=== PATIENT | male | born 1980 | race Caucasian/White ===

== ENCOUNTER 2018-07-08 17:33 | Emergency (ER) | payer OTHER ==
[~2018-07-08] VITALS: Ht 182.9 cm; Wt 106.9 kg
--- NOTE | 2018-07-08 18:14 | PHYS DOC ---
Past History Past Medical History: Anxiety, Depression (JOHNATHON MARCANO DO) Past Surgical History: No Surgical History (JOHNATHON MARACNO DO) Alcohol Use: Occasionally Drug Use: None Social History Narrative: hx of THC use (JOHNATHON MARCANO DO) Adult General Chief Complaint Chief Complaint: BACK PAIN OR INJURY HPI HPI Patient is a 37-year-old male presents complaining of back pain for the past 5 days. He was seen at [facility] 2 days ago and was doing initially better on the oral outpatient medicines administered. However today he re-"tweaked" his back while sitting in a chair. There is been no new trauma. No loss of bowel or bladder control. No fever. No personal history of cancer. Movement seems to make it worse. Medications are providing little relief.[] (JOHNATHON MARCANO DO) Review of Systems Review of Systems Constitutional: Denies fever or chills [] Eyes: Denies change in visual acuity, redness, or eye pain [] HENT: Denies nasal congestion or sore throat [] Respiratory: Denies cough or shortness of breath [] Cardiovascular: No chest pain or palpitations[] GI: Denies abdominal pain, nausea, vomiting, bloody stools or diarrhea [] : Denies dysuria or hematuria [] Musculoskeletal: The history of present illness[] Integument: Denies rash or skin lesions [] Neurologic: Denies headache, focal weakness or sensory changes [] Endocrine: Denies polyuria or polydipsia [] All other systems were reviewed and found to be within normal limits, except as documented in this note. (JOHNATHON MARCANO DO) Allergies Allergies Allergies Coded Allergies Type Severity Reaction Last Updated Verified No Known Drug Allergies 07/08/18 No (JOHNATHON MARCANO DO) Physical Exam Physical Exam Constitutional: Well developed, well nourished, mild discomfort, non-toxic appearance. [] HENT: Normocephalic, atraumatic, bilateral external ears normal, oropharynx moist, no oral exudates, nose normal. [] Eyes: PERRLA, EOMI, conjunctiva normal, no discharge. [] Neck: Normal range of motion, no tenderness, supple, no stridor. [] Cardiovascular:Heart rate regular rhythm, no murmur [] Lungs & Thorax: Bilateral breath sounds clear to auscultation [] Abdomen: Bowel sounds normal, soft, no tenderness, no masses, no pulsatile masses. [] Skin: Warm, dry, no erythema, no rash. [] Back: Tenderness in the lower back. Decreased active range of motion. Bilateral lumbar paraspinal muscular tenderness. Normal gait. DTRs are 2 over 4 and symmetric. Strength is 5 out of 5 in the quadriceps, hamstrings, dorsi and plantar flexors of the ankle., no CVA tenderness. [] Extremities: No tenderness, no cyanosis, no clubbing, ROM intact, no edema. [] Neurologic: Alert and oriented X 3, normal motor function, normal sensory function, no focal deficits noted. [] Psychologic: Affect normal, judgement normal, mood normal. [] (JOHNATHON MARCANO DO) Physical Exam Constitutional: Well developed, well nourished, uncomfortable HENT: Normocephalic, atraumatic Neck: Normal range of motion, no tenderness, supple, no stridor. [] Skin: Warm, dry, no erythema Back: No midline bony tenderness, upper lumbar paraspinal tenderness noted bilaterally, pain on straight leg raise, no CVA tenderness Extremities: No tenderness, ROM intact, no edema. [] Neurologic: Alert and oriented X 3, no focal deficits noted. [] Psychologic: Affect normal, judgement normal, mood normal. [] (THAD KINCAID DO) Current Patient Data Vital Signs Vital Signs Date Time Temp Pulse Resp B/P (MAP) Pulse Ox O2 Delivery O2 Flow Rate FiO2 07/08/18 17:44 98.2 85 18 96 Room Air (JOHNATHON MARCANO DO) EKG EKG [] (JOHNATHON MARCANO DO) Radiology/Procedures Radiology/Procedures [] (JOHNATHON MARCANO DO) Course & Med Decision Making Course & Med Decision Making Pertinent Labs and Imaging studies reviewed. (See chart for details) ED course: Patient arrived, was placed in bed, and tolerated exam well. Patient care worst to the oncoming physician at 1800.[] (JOHNATHON MARCANO DO) Course & Med Decision Making 1800- Receiving signout from Dr. Marcano for patient with back pain and hx of known low back pain. Pain previously addressed. Patient seen and evaluated by myself. Denies loss of bowel/bladder. No rash noted. Patient stable for discharge with outpatient follow-up with PCP. Discussed findings and plan with patient, who acknowledges understanding and agreement. (THAD KINCAID DO) Dragon Disclaimer Dragon Disclaimer This electronic medical record was generated, in whole or in part, using a voice recognition dictation system. (JOHNATHON MARCANO DO) Departure Departure: Impression: Primary Impression: Back pain Disposition: HOME, SELF-CARE Condition: STABLE Referrals: PCP,UNKNOWN (PCP) Patient Instructions: Back Pain, Adult, [id number] Scripts Orphenadrine Citrate (ORPHENADRINE CITRATE) 100 Mg Tablet.er 1 TAB PO BID PRN for MUSCLE PAIN, #14 TAB 0 Refills Prov: THAD KINCAID DO 07/08/18 Prednisone (PREDNISONE) 20 Mg Tablet 1 TAB PO BID for back pain, #10 TAB Prov: THAD KINCAID DO 07/08/18 Problem Qualifiers Primary Impression: Back pain Back pain location: low back pain Chronicity: acute Back pain laterality: bilateral Sciatica presence: without sciatica Qualified Codes: M54.5 - Low back pain JOHNATHON MARCANO DO Jul 08, 2018 18:14 THAD KINCAID DO Jul 08, 2018 18:20
[2018-07-08] MEDS ORDERED: KETOROLAC 30 MG/ML VIAL. IM ONE (18:15)
[2018-07-08] MEDS ORDERED: ORPH-16 PO (18:20)
[2018-07-08] MEDS ORDERED: PRED20TA PO (18:20)
[2018-07-08 18:26] VITALS: BP 154/97
== END 2018-07-08 18:27 | disposition home or self-care (01) ==
LOC: ER 17:33
DX: M54.5 Low back pain (principal); F41.9 Anxiety disorder, unspecified; F32.9 Major depressive disorder, single episode, unspecified; X50.9XXA Other and unspecified overexertion or strenuous movements or postures, initial encounter; Y93.89 Activity, other specified; Y92.89 Other specified places as the place of occurrence of the external cause; Y99.8 Other external cause status
CPT/HCPCS: 96372; 99283; J1885; J2060

== ENCOUNTER 2019-04-03 11:56 | Emergency (ER) | payer OTHER ==
[~2019-04-03] VITALS: Ht 182.9 cm; Wt 106.9 kg
[~2019-04-03 11:56] MED LIST: ORPH-16 PO; PRED20TA PO
[2019-04-03 12:08] VITALS: BP 147/96
[2019-04-03] MEDS ORDERED: ORPH-16 PO (12:22)
[2019-04-03] MEDS ORDERED: DICL50TA4 PO (12:22)
[2019-04-03] MEDS ORDERED: HYDR-3165 PO (12:22)
--- NOTE | 2019-04-03 12:22 | PHYS DOC ---
Past History Past Medical History: Anxiety, Hypertension Past Surgical History: No Surgical History Alcohol Use: Rarely Drug Use: None Adult General Chief Complaint Chief Complaint: BACK PAIN OR INJURY HPI HPI Patient is a 38-year-old male who presents with complaint of mid back pain that started yesterday. Patient was reaching up to get a light box and felt something twinge in his back. He states that he now has pain constantly in his mid to lower thoracic region and states it radiates around to the front. He describes pain as sharp and stabbing. He denies any loss of bowel or bladder control.[] Review of Systems Review of Systems Constitutional: Denies fever or chills [] Respiratory: Denies cough or shortness of breath [] Cardiovascular: No additional information not addressed in HPI [] : Denies dysuria or hematuria [] Musculoskeletal: Complains of mid to lower thoracic back pain [] Integument: Denies rash or skin lesions [] Neurologic: Denies headache, focal weakness or sensory changes [] Current Medications Current Medications Current Medications Medications (Trade) Dose Ordered Sig/Justin Start Time Stop Time Status Last Admin Dose Admin Ketorolac Tromethamine (Toradol Im) 60 mg 1X ONCE 04/03/19 12:30 04/03/19 12:31 UNV Orphenadrine Citrate (Norflex) 60 mg 1X ONCE 04/03/19 12:30 04/03/19 12:31 UNV Allergies Allergies Allergies Coded Allergies Type Severity Reaction Last Updated Verified No Known Drug Allergies 07/08/18 No Physical Exam Physical Exam Constitutional: Well developed, well nourished, no acute distress, non-toxic appearance. [] Cardiovascular:Heart rate regular rhythm, no murmur [] Lungs & Thorax: Bilateral breath sounds clear to auscultation [] Skin: Warm, dry, no erythema, no rash. [] Back: Examination of back demonstrates tenderness to palpation around T9-T10 on the right with palpable spasm. [] Extremities: No tenderness, no cyanosis, no clubbing, ROM intact, no edema. [] Current Patient Data Vital Signs Vital Signs Date Time Temp Pulse Resp B/P (MAP) Pulse Ox O2 Delivery O2 Flow Rate FiO2 04/03/19 12:08 88 18 98 Room Air EKG EKG [] Radiology/Procedures Radiology/Procedures [] Course & Med Decision Making Course & Med Decision Making Pertinent Labs and Imaging studies reviewed. (See chart for details) [] Dragon Disclaimer Dragon Disclaimer This electronic medical record was generated, in whole or in part, using a voice recognition dictation system. Departure Departure: Impression: Primary Impression: Acute thoracic myofascial strain Disposition: 01 HOME, SELF-CARE Condition: STABLE Referrals: GERTRUDE MICHEL DO (PCP) Patient Instructions: Thoracic Strain Scripts Orphenadrine Citrate (ORPHENADRINE CITRATE) 100 Mg Tablet.er 1 TAB PO BID PRN for MUSCLE SPASMS, #14 TAB Prov: BEBA LUNA Jr. DO 04/03/19 Hydrocodone Bit/Acetaminophen (NORCO 5-325 TABLET) 1 Each Tablet 1 TAB PO PRN Q6HRS PRN for PAIN, #12 TAB 0 Refills Prov: BEBA LUNA Jr. DO 04/03/19 Diclofenac Sodium (DICLOFENAC SODIUM) 50 Mg Tablet.dr 1 TAB PO BID PRN for PAIN, #20 TAB Prov: BEBA LUNA Jr. DO 04/03/19 Problem Qualifiers Primary Impression: Acute thoracic myofascial strain Encounter type: initial encounter Qualified Codes: S29.019A - Strain of muscle and tendon of unspecified wall of thorax, initial encounter BEBA LUNA Jr. DO Apr 03, 2019 12:22
[2019-04-03] MEDS ORDERED: ORPHENADRINE CITRATE 60 MG/2 ML VIAL. IM ONE (12:30)
[2019-04-03] MEDS ORDERED: KETOROLAC 60 MG/2 ML VIAL. IM ONE (12:30)
== END 2019-04-03 12:46 | disposition home or self-care (01) ==
LOC: ER 11:56
DX: S29.012A Strain of muscle and tendon of back wall of thorax, initial encounter (principal); I10 Essential (primary) hypertension; F41.9 Anxiety disorder, unspecified; X50.9XXA Other and unspecified overexertion or strenuous movements or postures, initial encounter; Y93.89 Activity, other specified; Y92.89 Other specified places as the place of occurrence of the external cause; Y99.8 Other external cause status
CPT/HCPCS: 96372; 99284; J1885; J2360

== ENCOUNTER 2019-08-03 14:19 | Emergency (ER) | payer OTHER ==
[~2019-08-03] VITALS: Ht 182.9 cm; Wt 112.0 kg
[~2019-08-03 14:19] MED LIST changes: +DICL50TA4 PO; +HYDR-3165 PO
[2019-08-03 14:31] VITALS: BP 145/78
--- NOTE | 2019-08-03 15:06 | RAD ---
PROCEDURE: FINGER(S) RIGHT STUDY DATE: 08/03/2019 CLINICAL INDICATION / HISTORY: Right middle finger injury, unable to fully extend at the DIP joint.. TECHNIQUE: Right middle finger - 3 Views: PA, oblique, and lateral views were obtained. COMPARISON: None FINDINGS: No fracture, dislocation, or other abnormality is identified. The third digit DIP is held in slight flexion.. IMPRESSION: Right middle finger. No acute osseous abnormality. Electronically signed by: Cheryl Pratt MD (08/03/2019 3:04 PM) [id number]
--- NOTE | 2019-08-03 15:13 | PHYS DOC ---
Past History Past Medical History: Anxiety, Depression, Hypertension Past Surgical History: No Surgical History Alcohol Use: Rarely Drug Use: None Adult General Chief Complaint Chief Complaint: FINGER INJURY HPI HPI Patient is a 38 year old male who presents with complaint of pain to right middle finger. The patient states that he injured his finger yesterday. He notes while reaching into a cooler to grab a drink, he accidentally hit the tip of his right middle finger in the cooler. States that since then he has had pain to the top portion of this middle finger at the distal joint. States he is unable to fully extend at the distal joint of the finger. Notes pain is mild to moderate. Denies any other injuries. Review of Systems Review of Systems Constitutional: Denies fever or chills [] Eyes: Denies change in visual acuity, redness, or eye pain [] HENT: Denies nasal congestion or sore throat [] Respiratory: Denies cough or shortness of breath [] Cardiovascular: Denies chest pain or edema [] GI: Denies abdominal pain, nausea, vomiting, bloody stools or diarrhea [] : Denies dysuria or hematuria [] Musculoskeletal: Right middle finger injury [] Integument: Denies rash or skin lesions [] Neurologic: Denies headache, focal weakness or sensory changes [] Endocrine: Denies polyuria or polydipsia [] All other systems were reviewed and found to be within normal limits, except as documented in this note. Allergies Allergies Allergies Coded Allergies Type Severity Reaction Last Updated Verified No Known Drug Allergies 07/08/18 No Physical Exam Physical Exam Constitutional: Alert, afebrile, no acute distress. [] HENT: Normocephalic, atraumatic, bilateral external ears normal, oropharynx mo ist, no oral exudates, nose normal. [] Eyes: PERRLA, EOMI, conjunctiva normal, no discharge. [] Neck: Normal range of motion, no tenderness, supple, no stridor. [] Cardiovascular:Heart rate regular rhythm, no murmur [] Lungs & Thorax: Bilateral breath sounds clear to auscultation [] Abdomen: Bowel sounds normal, soft, no tenderness, no masses, no pulsatile masses. [] Skin: Warm, dry, no erythema, no rash. [] Back: No tenderness, no CVA tenderness. [] Extremities: Right middle finger with tenderness to palpation at the dorsum of DIP joint, right middle finger maintains slight flexion at DIP joint when MCP and PIP joint fully extended [] Neurologic: Alert and oriented X 3, normal motor function, normal sensory function, no focal deficits noted. [] Current Patient Data Vital Signs Vital Signs Date Time Temp Pulse Resp B/P (MAP) Pulse Ox O2 Delivery O2 Flow Rate FiO2 08/03/19 14:31 98.1 98 18 145/78 (100) 98 Room Air Lab Results Not performed EKG EKG Not performed [] Radiology/Procedures Radiology/Procedures [address] [address] IMAGING REPORT Signed PATIENT: JEAN CARLOS ARTEAGA ACCOUNT: [id number] : 1980 LOCATION: ER AGE: 38 SEX: M EXAM STATUS: REG ER ORD. PHYSICIAN: RAFAEL HAMILTON MD REASON: right middle finger injury, unable to fully extend at DIP joint PROCEDURE: FINGER(S) RIGHT PROCEDURE: FINGER(S) RIGHT STUDY DATE: 08/03/2019 CLINICAL INDICATION / HISTORY: Right middle finger injury, unable to fully extend at the DIP joint.. TECHNIQUE: Right middle finger - 3 Views: PA, oblique, and lateral views were obtained. COMPARISON: None FINDINGS: No fracture, dislocation, or other abnormality is identified. The third digit DIP is held in slight flexion.. IMPRESSION: Right middle finger. No acute osseous abnormality. Electronically signed by: Ana Pratt MD (08/03/2019 3:04 PM) [id number] DICTATED AND SIGNED BY: ANA PRATT MD DATE: 08/03/19 1504 CC: RAFAEL HAMILTON MD; GERTRUDE MICHEL DO ~ [] Course & Med Decision Making Course & Med Decision Making Pertinent Labs and Imaging studies reviewed. (See chart for details) Patient has a mallet finger deformity on examination consistent with likely e xtensor tendon injury. X-rays negative for associated fracture. Placed in aluminum finger splint to keep finger fully extended at this time. Advised patient he would need to keep finger splinted likely over the next 6 weeks. Advised to follow-up with primary care in 1 week for reevaluation. Recommended return to the emergency department for any worsening symptoms. Patient voiced understanding and agreement with treatment plan. [] Dragon Disclaimer Dragon Disclaimer This electronic medical record was generated, in whole or in part, using a voice recognition dictation system. Departure Departure: Impression: Primary Impression: Mallet deformity of middle finger Disposition: 01 HOME, SELF-CARE Condition: STABLE Referrals: GERTRUDE MICHEL DO (PCP) Patient Instructions: Mallet Finger Additional Instructions: Be sure to keep your splint in place for the next 6 weeks to allow your finger to heal properly. Follow-up with your primary doctor in 1 week for reevaluation. Return to the emergency department for any worsening symptoms. RAFAEL HAMILTON MD August 03, 2019 15:13
== END 2019-08-03 15:15 | disposition home or self-care (01) ==
LOC: ER 14:19
DX: M20.011 Mallet finger of right finger(s) (principal); M79.644 Pain in right finger(s); F41.9 Anxiety disorder, unspecified; F32.9 Major depressive disorder, single episode, unspecified; I10 Essential (primary) hypertension
CPT/HCPCS: 29130; 73140; 99283